=== PATIENT | male | born 1990 | race Caucasian/White ===

== ENCOUNTER 2021-06-21 18:08 | Emergency (ER) | payer BC, MEDICAID ==
[~2021-06-21] VITALS: Ht 180.3 cm; Wt 100.0 kg
[2021-06-21] MEDS ORDERED: IBUP-1114 PO (18:17)
[2021-06-21] MEDS ORDERED: NAPR-849 PO (18:17)
[2021-06-21] MEDS ORDERED: ASPI-1 PO (18:17)
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
[2021-06-22 01:58] VITALS: BP 153/85
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
== END 2021-06-22 02:09 | disposition home or self-care (01) ==
LOC: M ED 18:08
DX: S62.015A Nondisplaced fracture of distal pole of navicular [scaphoid] bone of left wrist, initial encounter for closed fracture (principal); S62.301A Unspecified fracture of second metacarpal bone, left hand, initial encounter for closed fracture; S62.303A Unspecified fracture of third metacarpal bone, left hand, initial encounter for closed fracture; S62.185A Nondisplaced fracture of trapezoid [smaller multangular], left wrist, initial encounter for closed fracture; V86.59XA Driver of other special all-terrain or other off-road motor vehicle injured in nontraffic accident, initial encounter